=== PATIENT | female | born 1955 | race Caucasian/White ===

== ENCOUNTER 2016-08-06 10:28 | Emergency (ER) | payer OTHER ==
[~2016-08-06] VITALS: Ht 152.4 cm; Wt 75.0 kg
[2016-08-06] MEDS ORDERED: SODIUM CHLORIDE 0.9% 1,000 ML IV ONE (11:30)
[2016-08-06] MEDS ORDERED: ONDANSETRON HCL 4 MG/2 ML VIAL IVP ONE ×2 (11:30→12:45)
[2016-08-06] MEDS ORDERED: MORPHINE SULFATE 4 MG/ML SYRINGE IVP ONE (11:30)
[2016-08-06] MEDS ORDERED: FentaNYL CITRATE-PF 100 MCG/2 ML VIAL IVP ONE ×2 (12:15→14:15)
[2016-08-06] MEDS ORDERED: MIDAZOLAM HCL 5 MG/ML VIAL IVP ONE (12:15)
[2016-08-06] MEDS ORDERED: FLUMAZENIL 0.1 MG/ML 5 ML VIAL IVP ONE (12:44)
[2016-08-06] MEDS ORDERED: NALOXONE HCL 1 MG/ML 2 ML SYG ONE (12:44)
[2016-08-06] MEDS ORDERED: MIDAZOLAM HCL 2 MG/2 ML VIAL IVP ONE (14:15)
[2016-08-06 15:53] VITALS: BP 141/71
== END 2016-08-06 15:57 | disposition home or self-care (01) ==
LOC: EMS 10:31
DX: S53.145A Lateral dislocation of left ulnohumeral joint, initial encounter (principal); I10 Essential (primary) hypertension; Z88.0 Allergy status to penicillin; W19.XXXA Unspecified fall, initial encounter; Y93.89 Activity, other specified; Y92.89 Other specified places as the place of occurrence of the external cause; Y99.8 Other external cause status
CPT/HCPCS: 24600; 73060; 73080; 73090; 96361; 96374; 96375; 96376; 99285; J2250; J2270; J2405; J3010; J7030; J2310; J3490